=== PATIENT | female | born 1965 | race Caucasian/White ===

== ENCOUNTER → 2017-07-04 11:58 | Outpatient (CLI) | payer OTHER, SELFPAY ==
--- NOTE | 2017-07-04 15:57 | STRESSREP ---
Stress Test Report Treadmill EKG: Resting EKG: Sinus bradycardia, normal intervals, normal axis, no evidence of previous myocardial infarction. Treadmill EKG: The patient exercise according to a Murali protocol for 6 minutes and 0 seconds achieving a workload of 7.00 METS. Resting heart rate was initially 58 beats a minute and kenroy to maximum of 162 beats a minute which represents 95% of the maximal age-predicted heart rate. Resting blood pressure was 140/84 and kenroy to maximum 170/76. Test was terminated due to the attainment of target heart rate, and dyspnea. During exercise the patient's heart rate increased as expected. Patient had subtle upsloping ST segment depression during exercise but this did not reach criteria for ischemia. Rare PVCs noted. Rare PACs during recovery. Conclusions: Normal adequate treadmill EKG. Negative for ischemia by EKG criteria. No anginal symptoms noted. Rare PVCs noted. Appropriate blood pressure response to exercise. Average exercise capacity for age. Patient tolerated procedure well. No complications.
== END ==
PROVIDERS: Family Provider Nurse Practitioner Family; PCP Nurse Practitioner Family; Visit Provider Internal Medicine Cardiovascular Disease
DX: R06.02 Shortness of breath (principal); I49.9 Cardiac arrhythmia, unspecified; I10 Essential (primary) hypertension
CPT/HCPCS: 93017